=== PATIENT | female | born 1985 | race Caucasian/White ===

== ENCOUNTER 2019-08-31 15:00 | Observation (INO) | payer OTHER ==
[~2019-08-31] VITALS: Ht 160 cm; Wt 79.8 kg
[2019-08-31 15:49] LABS: BASOPHILS % (AUTO) 0.3 % (0.0-2.0); EOSINOPHILS % (AUTO) 0.3 % (1.0-6.0); HEMATOCRIT 36.5 % (36-46); HEMOGLOBIN 12.3 g/dL (12.0-16.0); LYMPHOCYTES # (AUTO) 2.4 K/uL (1.0-4.8); MEAN CORPUSCULAR HEMOGLOBIN 30.9 pg (26.0-34.0); MEAN CORPUSCULAR HGB CONC 33.8 G/dL (31.0-37.0); MEAN CORPUSCULAR VOLUME 91 fL (80-100); MONOCYTES # (AUTO) 0.7 K/uL (0.1-1.0); NEUTROPHILS # (AUTO) 6.8 K/uL (1.8-7.7); NEUTROPHILS % (AUTO) 68.4 % (40.0-70.0); PLATELET COUNT (AUTO)-OB 225 K/uL (150-450); RED CELL DISTRIBUTION WIDTH 12.9 % (11.5-14.5)
[2019-08-31 15:59] VITALS: BP 130/87
[2019-08-31 16:01] LABS: ANION GAP 10 mmol/L (8-16); CALCIUM, TOTAL 8.5 mg/dL (8.8-10.5); CARBON DIOXIDE 21 mmol/L (22-29); CHLORIDE 104 mmol/L (98-107); CREATININE 0.41 mg/dL (0.60-1.30); GLOMERULAR FILTR. RATE CALC > 60 mL/min (>60); GLUCOSE,RANDOM 68 mg/dL (70-110); POTASSIUM 3.7 mmol/L (3.5-5.1); SODIUM SERUM 135 mmol/L (136-145); UREA NITROGEN, BLOOD 10 mg/dL (7-18)
[2019-08-31] MEDS ORDERED: PREN-217 PO (16:03)
[2019-08-31] MEDS ORDERED: ASPI-728 PO (16:03)
[2019-08-31 16:06] LABS: ALANINE AMINOTRANSFERASE 21 U/L (12-78); ALBUMIN 2.6 g/dL (3.4-5.0); ALKALINE PHOSPHATASE 87 U/L (46-116); ASPARTATE AMINOTRANSFERASE 19 U/L (15-37); BILIRUBIN,TOTAL 0.3 mg/dL (0.1-1.0); TOTAL PROTEIN, SERUM 6.1 g/dL (6.4-8.2); URIC ACID 5.8 mg/dL (2.6-7.2)
[2019-08-31 16:27] LABS: CREATININE,URINE RANDOM 23.8 mg/dL (30.0-125.0)
[2019-08-31 16:43] LABS: PROTEIN,URINE RANDOM < 6 mg/dL (0-11.9)
[2019-08-31] MEDS ORDERED: METHY250 PO (17:51)
== END 2019-08-31 17:45 | disposition home or self-care (01) ==
LOC: 4S 15:00
PROVIDERS: ADMIT Obstetrics & Gynecology; ATTEND Obstetrics & Gynecology
DX: O26.893 Other specified pregnancy related conditions, third trimester (principal); R03.0 Elevated blood-pressure reading, without diagnosis of hypertension; O09.523 Supervision of elderly multigravida, third trimester; Z3A.33 33 weeks gestation of pregnancy
CPT/HCPCS: 36415; 59025; 80053; 81001; 82570; 84156; 84550; 85025; G0378

== ENCOUNTER 2019-09-10 11:20 | Observation (INO) | payer OTHER ==
[~2019-09-10] VITALS: Ht 160 cm; Wt 79.4 kg
[~2019-09-10 11:20] MED LIST: ASPI-728 PO; METHY250 PO; PREN-217 PO
[2019-09-10 12:03] VITALS: BP 138/83
[2019-09-10] MEDS ORDERED: BETAMETHASONE SOLUSPAN 6 MG/ML 5 ML VIAL IM ONE (12:15)
[2019-09-10] MEDS: RINGERS SOLUTION,LACTATED 1,000 ML IV SCH ×2 (13:13→22:30)
[2019-09-10] MEDS: METHYLDOPA 250 MG TABLET PO SCH ×2 (13:14→19:30)
[2019-09-10] MEDS ORDERED: NIFE-64 PO (18:47)
[2019-09-10] MEDS ORDERED: METHY500 PO (18:47)
[2019-09-11] MEDS: METHYLDOPA 250 MG TABLET PO SCH ×2 (01:35→07:15)
[2019-09-11 05:51] LABS: EOSINOPHILS % (AUTO) 0 % (1.0-6.0); HEMATOCRIT 36.3 % (36-46); HEMOGLOBIN 12.1 g/dL (12.0-16.0); LYMPHOCYTES # (AUTO) 1.7 K/uL (1.0-4.8); LYMPHOCYTES % (AUTO) 11.8 % (22.0-44.0); MEAN CORPUSCULAR HEMOGLOBIN 30.5 pg (26.0-34.0); MEAN CORPUSCULAR HGB CONC 33.3 G/dL (31.0-37.0); MEAN CORPUSCULAR VOLUME 92 fL (80-100); MONOCYTES # (AUTO) 0.3 K/uL (0.1-1.0); MONOCYTES % (AUTO) 1.8 % (2.0-9.0); NEUTROPHILS # (AUTO) 12.5 K/uL (1.8-7.7); PLATELET COUNT (AUTO)-OB 166 K/uL (150-450); RED BLOOD CELL COUNT(AUTO) 3.97 MIL/uL (4.00-5.20); RED CELL DISTRIBUTION WIDTH 12.9 % (11.5-14.5)
[2019-09-11 06:04] LABS: ALANINE AMINOTRANSFERASE 19 U/L (12-78); ALBUMIN 2.5 g/dL (3.4-5.0); ALKALINE PHOSPHATASE 94 U/L (46-116); ANION GAP 13 mmol/L (8-16); ASPARTATE AMINOTRANSFERASE 20 U/L (15-37); BILIRUBIN,TOTAL 0.2 mg/dL (0.1-1.0); CALCIUM, TOTAL 8.7 mg/dL (8.8-10.5); CARBON DIOXIDE 19 mmol/L (22-29); CHLORIDE 109 mmol/L (98-107); GLOMERULAR FILTR. RATE CALC > 60 mL/min (>60); GLUCOSE,RANDOM 112 mg/dL (70-110); POTASSIUM 4.3 mmol/L (3.5-5.1); SODIUM SERUM 141 mmol/L (136-145); TOTAL PROTEIN, SERUM 5.9 g/dL (6.4-8.2); UREA NITROGEN, BLOOD 11 mg/dL (7-18); URIC ACID 6.3 mg/dL (2.6-7.2)
[2019-09-11 06:08] LABS: NEUTROPHILS % (AUTO) 86.4 % (40.0-70.0)
[2019-09-11] MEDS: RINGERS SOLUTION,LACTATED 1,000 ML IV SCH (07:15)
[2019-09-11] MEDS ORDERED: BETAMETHASONE SOLUSPAN 6 MG/ML 5 ML VIAL IM ONE (08:00)
== END 2019-09-11 08:40 | disposition home or self-care (01) ==
LOC: 4S 11:20 → PREOBSVTOIN 10-01 11:40 → PREINTOOBSV 10-01 11:41
PROVIDERS: ADMIT Obstetrics & Gynecology; ATTEND Obstetrics & Gynecology
DX: O09.523 Supervision of elderly multigravida, third trimester (principal); Z3A.34 34 weeks gestation of pregnancy
CPT/HCPCS: 36415; 59025; 80053; 81001; 84550; 85025; 96372 ×2; G0378 ×2; J0702 ×2; J7120 ×2

== ENCOUNTER 2019-09-20 16:06 | Inpatient (IN) | payer OTHER ==
[~2019-09-20] VITALS: Ht 160 cm; Wt 79.4 kg
[~2019-09-20 16:06] MED LIST changes: +METHY500 PO; +NIFE-64 PO
[2019-09-20] MEDS ORDERED: BETAMETHASONE SOLUSPAN 6 MG/ML 5 ML VIAL IM ONE (17:15)
[2019-09-20] MEDS ORDERED: NIFEdipine 30 MG ER TABLET PO ONE (18:15)
[2019-09-20 18:24] LABS: ANION GAP 9 mmol/L (8-16); CALCIUM, TOTAL 8.2 mg/dL (8.8-10.5); CARBON DIOXIDE 23 mmol/L (22-29); CHLORIDE 106 mmol/L (98-107); GLOMERULAR FILTR. RATE CALC > 60 mL/min (>60); GLUCOSE,RANDOM 107 mg/dL (70-110); POTASSIUM 4.1 mmol/L (3.5-5.1); SODIUM SERUM 138 mmol/L (136-145); UREA NITROGEN, BLOOD 25 mg/dL (7-18)
[2019-09-20] MEDS: RINGERS SOLUTION,LACTATED 1,000 ML IV SCH (18:25)
[2019-09-20 18:30] LABS: ALANINE AMINOTRANSFERASE 24 U/L (12-78); ALBUMIN 2.3 g/dL (3.4-5.0); ALKALINE PHOSPHATASE 112 U/L (46-116); ASPARTATE AMINOTRANSFERASE 20 U/L (15-37); BILIRUBIN,TOTAL 0.2 mg/dL (0.1-1.0); TOTAL PROTEIN, SERUM 5.5 g/dL (6.4-8.2); URIC ACID 9.8 mg/dL (2.6-7.2)
[2019-09-20 18:39] LABS: BASOPHILS % (AUTO) 0.6 % (0.0-2.0); EOSINOPHILS % (AUTO) 0.4 % (1.0-6.0); HEMATOCRIT 35.9 % (36-46); HEMOGLOBIN 12.5 g/dL (12.0-16.0); LYMPHOCYTES # (AUTO) 2.3 K/uL (1.0-4.8); LYMPHOCYTES % (AUTO) 23.5 % (22.0-44.0); MEAN CORPUSCULAR HEMOGLOBIN 31.8 pg (26.0-34.0); MEAN CORPUSCULAR HGB CONC 34.8 G/dL (31.0-37.0); MEAN CORPUSCULAR VOLUME 91 fL (80-100); MONOCYTES # (AUTO) 0.7 K/uL (0.1-1.0); MONOCYTES % (AUTO) 6.7 % (2.0-9.0); NEUTROPHILS # (AUTO) 6.8 K/uL (1.8-7.7); NEUTROPHILS % (AUTO) 68.8 % (40.0-70.0); RED BLOOD CELL COUNT(AUTO) 3.94 MIL/uL (4.00-5.20)
[2019-09-20 19:07] VITALS: BP 140/91
[2019-09-20 19:38] LABS: PLATELET COUNT (AUTO) 216 K/uL (150-450)
[2019-09-20] MEDS ORDERED: NIFEdipine 10 MG CAPSULE PO ONE (20:15)
[2019-09-20] MEDS ORDERED: MAGNESIUM SULFATE 500 ML IV SCH (20:23)
[2019-09-20] MEDS ORDERED: CALCIUM GLUCONATE 100 MG/ML 10 ML IVP PRN (20:30)
[2019-09-20] MEDS ORDERED: MAGNESIUM SULFATE 2 GM/WATER 50 ML IV ONE (20:30)
[2019-09-20 21:12] LABS: CREATININE,URINE RANDOM 262.2 mg/dL (30.0-125.0)
[2019-09-20] MEDS ORDERED: METOCLOPRAMIDE HCL 5 MG/ML 2 ML VIAL IVP ONE (22:00)
[2019-09-20] MEDS ORDERED: CITRIC ACID/SODIUM CITRATE 30 ML SOLUTION UDCUP PO ONE (22:00)
[2019-09-20] MEDS ORDERED: ZOLPIDEM TARTRATE 5 MG TABLET PO ONE (22:30)
[2019-09-20] MEDS ORDERED: ACETAMINOPHEN 325 MG TABLET PO PRN (22:30)
[2019-09-20] MEDS ORDERED: INFLUENZA VIRUS VACCINE QVS 2019-20 (3YR+)/PF 60 MCG/0.5 ML SYRINGE IM ONE (23:30)
[2019-09-21] MEDS: RINGERS SOLUTION,LACTATED 1,000 ML IV SCH (01:08)
[2019-09-21] MEDS ORDERED: ACETAMINOPHEN 1000 MG/ISO-OSM 100 ML IV ONE (07:15)
[2019-09-21] MEDS ORDERED: FentaNYL CITRATE-PF 100 MCG/2 ML VIAL ONE (07:27)
[2019-09-21] MEDS ORDERED: BUPIVACAINE HCL/DEX-WATER/PF 0.75% 2 ML AMP ONE (07:27)
[2019-09-21] MEDS ORDERED: MORPHINE SULFATE/PF 0.5 MG/ML 10 ML AMP ONE (07:27)
[2019-09-21] MEDS ORDERED: DEXAMETHASONE SOD PHOS 4 MG/ML VIAL IVP PRN (08:15)
[2019-09-21] MEDS ORDERED: DiphenhydrAMINE HCL 50 MG/ML VIAL IVP PRN ×2 (08:15→08:30)
[2019-09-21] MEDS ORDERED: ONDANSETRON HCL 4 MG/2 ML VIAL IVP PRN ×2 (08:15→08:30)
[2019-09-21] MEDS ORDERED: MORPHINE SULFATE 10 MG/ML SYRINGE IVP PRN (08:30)
[2019-09-21] MEDS ORDERED: FentaNYL CITRATE-PF 100 MCG/2 ML VIAL IVP PRN (08:30)
[2019-09-21] MEDS ORDERED: NALOXONE HCL 0.4 MG/ML VIAL IVP PRN (08:30)
[2019-09-21] MEDS ORDERED: LANOLIN 7 GM OINTMENT TP PRN (08:45)
[2019-09-21] MEDS ORDERED: ACETAMINOPHEN/CODEINE 300-30 MG TABLET PO PRN (08:45)
[2019-09-21] MEDS: MAGNESIUM HYDROXIDE SUSPENSION 30 ML UDCUP PO SCH (09:15)
[2019-09-21] MEDS ORDERED: DiphenhydrAMINE HCL 50 MG/ML VIAL ONE (09:35)
[2019-09-21] MEDS ORDERED: DEXTROSE 5%-0.45% SODIUM CHL 1,000 ML IV ONE (10:21)
[2019-09-21] MEDS: DEXTROSE 5%-0.45% SODIUM CHL 1,000 ML IV SCH ×2 (10:23→22:04)
[2019-09-21] MEDS ORDERED: CALCIUM GLUCONATE 100 MG/ML 10 ML IVP PRN (10:30)
[2019-09-21] MEDS ORDERED: MAGNESIUM SULFATE 500 ML IV SCH (10:30)
[2019-09-21] MEDS: ACETAMINOPHEN 1000 MG/ISO-OSM 100 ML IV SCH ×2 (13:47→20:12)
[2019-09-21] MEDS ORDERED: NIFEdipine 30 MG ER TABLET PO SCH (14:15)
[2019-09-21] MEDS ORDERED: OXYTOCIN 30 UNITS/LACT RINGERS 500 ML IV ONE ×2 (14:53→18:51)
[2019-09-21] MEDS ORDERED: MISOPROSTOL 100 MCG TABLET PR ONE (15:00)
[2019-09-21 15:58] LABS: BASOPHILS % (AUTO) 0.1 % (0.0-2.0); EOSINOPHILS % (AUTO) 0 % (1.0-6.0); HEMATOCRIT 30.7 % (36-46); HEMOGLOBIN 10.2 g/dL (12.0-16.0); LYMPHOCYTES # (AUTO) 2.8 K/uL (1.0-4.8); LYMPHOCYTES % (AUTO) 10.9 % (22.0-44.0); MEAN CORPUSCULAR HEMOGLOBIN 30.7 pg (26.0-34.0); MEAN CORPUSCULAR HGB CONC 33.4 G/dL (31.0-37.0); MEAN CORPUSCULAR VOLUME 92 fL (80-100); MONOCYTES # (AUTO) 1.3 K/uL (0.1-1.0); MONOCYTES % (AUTO) 5.1 % (2.0-9.0); NEUTROPHILS # (AUTO) 21.3 K/uL (1.8-7.7); NEUTROPHILS % (AUTO) 83.9 % (40.0-70.0); PLATELET COUNT (AUTO)-OB 191 K/uL (150-450); RED BLOOD CELL COUNT(AUTO) 3.34 MIL/uL (4.00-5.20)
[2019-09-21] MEDS ORDERED: METHYLERGONOVINE MALEATE 0.2 MG/ML VIAL ONE (17:19)
[2019-09-21 17:23] LABS: INR 0.9 (0.9-1.1); PROTHROMBIN TIME 9.4 SEC (9.4-11.6)
[2019-09-21] MEDS ORDERED: OXYGEN THERAPY IH SCH ×3 (20:00)
[2019-09-21] MEDS ORDERED: EPHEDrine SULFATE 50 MG/ML VIAL ONE (21:58)
[2019-09-21] MEDS ORDERED: 0.9% SODIUM CHLORIDE 10 ML VIAL ONE (21:58)
[2019-09-21] MEDS ORDERED: PHENYLEPHRINE HCL 10 MG/ML VIAL ONE (21:58)
[2019-09-21] MEDS ORDERED: OXYTOCIN 10 UNITS/ML VIAL IM ONE (21:58)
[2019-09-22] MEDS: IBUPROFEN 800 MG TABLET PO SCH ×5 (00:29→23:40)
[2019-09-22] MEDS: DEXTROSE 5%-0.45% SODIUM CHL 1,000 ML IV SCH ×2 (02:11→06:09)
[2019-09-22] MEDS: ACETAMINOPHEN/CODEINE 300-30 MG TABLET PO PRN (04:05)
[2019-09-22 06:27] LABS: BASOPHILS % (AUTO) 0.3 % (0.0-2.0); EOSINOPHILS % (AUTO) 0 % (1.0-6.0); HEMATOCRIT 26.9 % (36-46); LYMPHOCYTES % (AUTO) 15.5 % (22.0-44.0); MEAN CORPUSCULAR HEMOGLOBIN 30.6 pg (26.0-34.0); MEAN CORPUSCULAR HGB CONC 33.3 G/dL (31.0-37.0); MEAN CORPUSCULAR VOLUME 92 fL (80-100); MONOCYTES # (AUTO) 1.2 K/uL (0.1-1.0); MONOCYTES % (AUTO) 6.3 % (2.0-9.0); NEUTROPHILS # (AUTO) 15.1 K/uL (1.8-7.7); NEUTROPHILS % (AUTO) 77.9 % (40.0-70.0); PLATELET COUNT (AUTO)-OB 155 K/uL (150-450); RED BLOOD CELL COUNT(AUTO) 2.92 MIL/uL (4.00-5.20); RED CELL DISTRIBUTION WIDTH 13.1 % (11.5-14.5)
[2019-09-22 06:41] LABS: INR 0.9 (0.9-1.1); PROTHROMBIN TIME 9.4 SEC (9.4-11.6)
[2019-09-22] MEDS: METHYLDOPA 250 MG TABLET PO SCH ×3 (11:19→23:43)
[2019-09-22] MEDS: MAGNESIUM HYDROXIDE SUSPENSION 30 ML UDCUP PO SCH ×2 (21:00→21:51)
[2019-09-23] MEDS: ACETAMINOPHEN/CODEINE 300-30 MG TABLET PO PRN ×4 (04:47→22:29)
[2019-09-23] MEDS: IBUPROFEN 800 MG TABLET PO SCH (08:58)
[2019-09-23] MEDS ORDERED: PHENYLEPHRINE/SHK LV/MIN OIL/PET 57 GM OINTMENT TP PRN (10:45)
[2019-09-23] MEDS ORDERED: SENNA 187 MG TABLET PO PRN (11:15)
[2019-09-23] MEDS: METHYLDOPA 250 MG TABLET PO SCH ×2 (14:54→20:28)
[2019-09-23] MEDS ORDERED: BISACODYL 5 MG EC TABLET PO ONE (15:00)
[2019-09-24] MEDS: METHYLDOPA 250 MG TABLET PO SCH ×4 (02:01→20:59)
[2019-09-24] MEDS: ACETAMINOPHEN/CODEINE 300-30 MG TABLET PO PRN (06:03)
[2019-09-24] MEDS: MAGNESIUM HYDROXIDE SUSPENSION 30 ML UDCUP PO SCH (09:39)
[2019-09-24 10:09] LABS: BASOPHILS % (AUTO) 0.2 % (0.0-2.0); EOSINOPHILS % (AUTO) 0.5 % (1.0-6.0); HEMATOCRIT 24.5 % (36-46); LYMPHOCYTES # (AUTO) 2.9 K/uL (1.0-4.8); LYMPHOCYTES % (AUTO) 20.8 % (22.0-44.0); MEAN CORPUSCULAR HEMOGLOBIN 30.5 pg (26.0-34.0); MEAN CORPUSCULAR HGB CONC 32.7 G/dL (31.0-37.0); MEAN CORPUSCULAR VOLUME 93 fL (80-100); MONOCYTES # (AUTO) 0.8 K/uL (0.1-1.0); NEUTROPHILS # (AUTO) 10.1 K/uL (1.8-7.7); NEUTROPHILS % (AUTO) 72.5 % (40.0-70.0); PLATELET COUNT (AUTO)-OB 217 K/uL (150-450); RED BLOOD CELL COUNT(AUTO) 2.64 MIL/uL (4.00-5.20)
[2019-09-24 10:17] LABS: ANION GAP 2 mmol/L (8-16); CALCIUM, TOTAL 8.2 mg/dL (8.8-10.5); CARBON DIOXIDE 29 mmol/L (22-29); CHLORIDE 106 mmol/L (98-107); CREATININE 0.65 mg/dL (0.60-1.30); GLOMERULAR FILTR. RATE CALC > 60 mL/min (>60); GLUCOSE,RANDOM 75 mg/dL (70-110); POTASSIUM 3.7 mmol/L (3.5-5.1); SODIUM SERUM 137 mmol/L (136-145); UREA NITROGEN, BLOOD 8 mg/dL (7-18)
[2019-09-24 10:22] LABS: ALANINE AMINOTRANSFERASE 30 U/L (12-78); ALBUMIN 1.9 g/dL (3.4-5.0); ALKALINE PHOSPHATASE 63 U/L (46-116); ASPARTATE AMINOTRANSFERASE 34 U/L (15-37); BILIRUBIN,TOTAL 0.1 mg/dL (0.1-1.0); URIC ACID 7.5 mg/dL (2.6-7.2)
[2019-09-24] MEDS: IBUPROFEN 800 MG TABLET PO SCH ×3 (11:00→23:32)
[2019-09-24] MEDS ORDERED: FERROUS SULFATE 325 MG EC TABLET PO SCH (17:30)
[2019-09-25] MEDS: METHYLDOPA 250 MG TABLET PO SCH ×2 (03:25→09:25)
[2019-09-25] MEDS: IBUPROFEN 800 MG TABLET PO SCH ×2 (06:21→11:57)
[2019-09-25] MEDS ORDERED: NIFEdipine 10 MG CAPSULE PO ONE (11:00)
[2019-09-25] MEDS ORDERED: IBUP-2071 PO (11:33)
[2019-09-25] MEDS ORDERED: FERR-89 PO (11:34)
[2019-09-25] MEDS ORDERED: FOLI1 PO (11:36)
== END 2019-09-25 12:30 | disposition home or self-care (01) | DRG 786 ==
LOC: OBSVTOIN 16:06 → 4S 16:06
PROVIDERS: ADMIT Obstetrics & Gynecology; ATTEND Obstetrics & Gynecology
PROC: 10D00Z1 Extraction of Products of Conception, Low, Open Approach (ICD-10-PCS; principal; 2019-09-21)
DX: O69.81X0 Labor and delivery complicated by cord around neck, without compression, not applicable or unspecified (principal); O15.1 Eclampsia complicating labor; O32.1XX0 Maternal care for breech presentation, not applicable or unspecified; Z3A.36 36 weeks gestation of pregnancy; Z37.0 Single live birth
CPT/HCPCS: 82570; 83036; 83735; 84156; 84550; 86850; 86900; 86901; 86923; 87081; 90686; J0131; J0690; J0702; J1200; J2210; J2274; J2370; J2590; J2765; J3010; J3475; J3490; J7120